=== PATIENT | male | born 1945 | race Hispanic/Latino ===

== ENCOUNTER 2017-04-03 09:37 | Inpatient (IN) | payer OTHER ==
[2017-04-03] VITALS (11 sets, daily range): BP systolic 134–156; BP diastolic 55–81
[~2017-04-03] VITALS: Ht 177.8 cm; Wt 110.6 kg
[2017-04-03 11:57] LABS: INR 0.96 (0.85-1.15); PARTIAL THROMBOPLASTIN TIME 29.5 SEC (26.3-35.5); PROTHROMBIN TIME 10.1 SEC (9.6-11.6)
[2017-04-03] MEDS ORDERED: TYL3B PO (12:29)
[2017-04-03] MEDS ORDERED: SULF1TAB3 PO (12:29)
[2017-04-03] MEDS ORDERED: CEPH500T PO (12:29)
[2017-04-03] MEDS ORDERED: ISOVUE-370 50ML VIAL IV ONE (13:51)
[2017-04-03] MEDS ORDERED: LIDOCAINE HCL 2% 20ML ONE (13:51)
[2017-04-03] MEDS ORDERED: IOPAMIDOL-370 100 ML VIAL IV ONE (13:51)
[2017-04-03] MEDS ORDERED: DEXTROSE 50%-WATER 50 ML DISP.SYRIN IV PRN (15:00)
[2017-04-03] MEDS ORDERED: ACETAMINOPHEN-CODEINE 300/30MG TAB PO PRN (15:00)
[2017-04-03] MEDS ORDERED: GLUCAGON 1MG KIT 1 MG ML IM PRN (15:00)
[2017-04-03] MEDS: CEPHALEXIN 500 MG CAPSULE PO SCH ×2 (17:29→20:11)
[2017-04-04 03:45] VITALS: BP 133/69
[2017-04-04 04:41] LABS: CREATININE 0.8 mg/dL (0.5-1.5); POTASSIUM 4.2 mmol/L (3.5-5.1)
[2017-04-04] MEDS ORDERED: FURO20TA6 PO (07:00)
[2017-04-04] MEDS ORDERED: LOSA50TA2 PO (07:00)
[2017-04-04] MEDS ORDERED: INSULIN HUMULIN R 100 UNIT/ML 3ML SQ SCH (07:30)
[2017-04-04 07:35] VITALS: BP 127/66
[2017-04-04] MEDS: CEPHALEXIN 500 MG CAPSULE PO SCH (08:17)
[2017-04-04] MEDS ORDERED: LOSARTAN 50 MG TABLET PO SCH (09:00)
[2017-04-04] MEDS ORDERED: FUROSEMIDE 20 MG TABLET PO SCH (09:00)
== END 2017-04-04 11:23 | disposition home or self-care (01) | DRG 287 ==
LOC: 2AH 10:19
PROVIDERS: ADMIT Family Medicine; ATTEND Family Medicine
PROC: B2111ZZ Fluoroscopy of Multiple Coronary Arteries using Low Osmolar Contrast (ICD-10-PCS; principal; 2017-04-03)
PROC: 4A023N7 Measurement of Cardiac Sampling and Pressure, Left Heart, Percutaneous Approach (ICD-10-PCS; 2017-04-03)
DX: I44.1 Atrioventricular block, second degree (principal); I42.0 Dilated cardiomyopathy; E11.9 Type 2 diabetes mellitus without complications; E66.9 Obesity, unspecified; I10 Essential (primary) hypertension; Z86.73 Personal history of transient ischemic attack (TIA), and cerebral infarction without residual deficits; Z68.35 Body mass index [BMI] 35.0-35.9, adult; Z83.3 Family history of diabetes mellitus; Z82.49 Family history of ischemic heart disease and other diseases of the circulatory system
CPT/HCPCS: 36415; 80048; 82948; 85610; 85730; 93005; 93458; C1760; C1894; J1644; J1815; J3490; Q9967

== ENCOUNTER 2017-04-09 11:34 | Inpatient (IN) | payer OTHER ==
[~2017-04-09] VITALS: Ht 177.8 cm; Wt 108.0 kg
[~2017-04-09 11:34] MED LIST: FURO20TA6 PO; LOSA50TA2 PO
[2017-04-09 12:41] LABS: BASOPHILS % (AUTO) 1.1 % (0.0-5.0); EOSINOPHILS % (AUTO) 2.4 % (0.0-8.0); HEMATOCRIT 41.4 % (42-54); LYMPHOCYTES % (AUTO) 18.2 % (21.0-51.0); MEAN CORPUSCULAR HEMOGLOBIN 32.8 pg (27.0-33.0); MEAN CORPUSCULAR HGB CONC 34.6 g/dL (32.0-36.0); MEAN CORPUSCULAR VOLUME 94.7 fL (79-99); MONOCYTES % (AUTO) 7.2 % (3.0-13.0); NEUTROPHILS % (AUTO) 71.1 % (40.0-77.0); PLATELET COUNT (AUTO) 215 K/uL (130-400); RED BLOOD CELL COUNT(AUTO) 4.37 MIL/uL (4.50-6.20); WHITE BLOOD COUNT (AUTO) 9.3 K/uL (4.8-10.8)
[2017-04-09 12:58] LABS: POTASSIUM 4.2 mmol/L (3.5-5.1)
[2017-04-09 13:12] LABS: ALBUMIN 3.3 g/dL (3.5-5.0); BILIRUBIN,TOTAL 0.3 mg/dL (0.2-1.0); CREATINE KINASE MB 0.8 ng/mL (0.5-3.6); TOTAL PROTEIN, SERUM 6.5 g/dL (6.0-8.3)
[2017-04-09] MEDS ORDERED: MORPHINE SULFATE 2 MG/ML 1ML SYG IV PRN (17:45)
[2017-04-09] MEDS ORDERED: FAMOTIDINE 20MG TAB 20 MG TAB ONE (20:17)
[2017-04-09] MEDS: FAMOTIDINE 20MG TAB 20 MG TAB PO SCH (21:00)
[2017-04-09 21:15] VITALS: BP 162/80
[2017-04-10] VITALS (8 sets, daily range): BP systolic 109–165; BP diastolic 50–78
[2017-04-10 06:34] LABS: EOSINOPHILS % (AUTO) 2.7 % (0.0-8.0); HEMATOCRIT 40.6 % (42-54); LYMPHOCYTES % (AUTO) 16.8 % (21.0-51.0); MEAN CORPUSCULAR HEMOGLOBIN 33.1 pg (27.0-33.0); MEAN CORPUSCULAR HGB CONC 34.7 g/dL (32.0-36.0); MEAN CORPUSCULAR VOLUME 95.3 fL (79-99); MONOCYTES % (AUTO) 7.8 % (3.0-13.0); NEUTROPHILS % (AUTO) 71.7 % (40.0-77.0); PLATELET COUNT (AUTO) 209 K/uL (130-400); RED BLOOD CELL COUNT(AUTO) 4.26 MIL/uL (4.50-6.20); RED CELL DISTRIBUTION WIDTH 12.8 % (11.0-15.5); WHITE BLOOD COUNT (AUTO) 8.8 K/uL (4.8-10.8)
[2017-04-10 06:56] LABS: CREATININE 0.9 mg/dL (0.5-1.5); MAGNESIUM 1.5 mg/dL (1.80-2.40); PHOSPHORUS 3.1 mg/dL (2.5-4.9); POTASSIUM 4.2 mmol/L (3.5-5.1); THYROID STIMULATING HORMONE 5.3 uIU/mL (0.36-3.74)
[2017-04-10 07:09] LABS: INR 0.98 (0.85-1.15); PROTHROMBIN TIME 10.3 SEC (9.6-11.6)
[2017-04-10] MEDS ORDERED: ATOR40TA71 PO (07:28)
[2017-04-10] MEDS ORDERED: LOSA25TA21 PO (07:28)
[2017-04-10] MEDS ORDERED: LEVO50TA11 PO (07:28)
[2017-04-10] MEDS ORDERED: FURO20TA4 PO (07:28)
[2017-04-10] MEDS ORDERED: CLOP75TA32 PO (07:28)
[2017-04-10] MEDS ORDERED: METF10004 PO (07:28)
[2017-04-10] MEDS ORDERED: SITA100T12 PO (07:28)
[2017-04-10] MEDS ORDERED: EZET10TA26 PO (07:28)
[2017-04-10] MEDS ORDERED: D3 PO (07:28)
[2017-04-10] MEDS ORDERED: ENOXAPARIN SODIUM 40 MG/0.4 ML SYRINGE SQ SCH (09:00)
[2017-04-10] MEDS: FAMOTIDINE 20MG TAB 20 MG TAB PO SCH ×2 (09:33→21:16)
[2017-04-10] MEDS ORDERED: VANCOMYCIN 1GM+NS 250ML 250 ML IV SCH (12:15)
[2017-04-10] MEDS: INSULIN HUMULIN R 100 UNIT/ML 3ML SQ SCH ×2 (16:56→21:17)
[2017-04-11] VITALS (12 sets, daily range): BP systolic 112–147; BP diastolic 53–89
[2017-04-11] MEDS: INSULIN HUMULIN R 100 UNIT/ML 3ML SQ SCH ×4 (06:47→22:24)
[2017-04-11] MEDS ORDERED: BUPIVACAINE/PF 0.25% 30ML VIAL IJ ONE (07:18)
[2017-04-11] MEDS ORDERED: LIDOCAINE HCL 1% MDV 50ML VIAL ONE (07:18)
[2017-04-11] MEDS ORDERED: MEPERIDINE-PF 50 MG/ML SYG ONE ×2 (07:43→08:36)
[2017-04-11] MEDS ORDERED: VANCOMYCIN 1GM+NS 250ML 500 ML IV ONE (07:43)
[2017-04-11] MEDS ORDERED: MIDAZOLAM HCL 1 MG/ML 2ML VIAL ONE ×4 (07:43→09:46)
[2017-04-11] MEDS ORDERED: ISOVUE-300 100 ML VIAL IV ONE (08:03)
[2017-04-11] MEDS: FAMOTIDINE 20MG TAB 20 MG TAB PO SCH ×2 (09:00→22:10)
[2017-04-11] MEDS ORDERED: ACETAMINOPHEN-CODEINE 300/30MG TAB PO PRN (11:15)
[2017-04-11] MEDS ORDERED: ACETAMINOPHEN 325 MG TAB PO PRN (11:15)
[2017-04-11] MEDS: ACETAMINOPHEN-CODEINE 300/30MG TAB PO PRN (14:30)
[2017-04-11] MEDS ORDERED: METOPROLOL TARTRATE 25 MG TAB PO SCH (21:00)
[2017-04-12 04:00] VITALS: BP 138/70
[2017-04-12] MEDS: INSULIN HUMULIN R 100 UNIT/ML 3ML SQ SCH ×2 (06:08→11:42)
[2017-04-12] MEDS ORDERED: CARV3.12 PO (06:57)
[2017-04-12] MEDS: FAMOTIDINE 20MG TAB 20 MG TAB PO SCH (07:42)
[2017-04-12] MEDS: ACETAMINOPHEN-CODEINE 300/30MG TAB PO PRN (07:42)
[2017-04-12 08:00] VITALS: BP 137/78
[2017-04-12] MEDS ORDERED: CARVEDILOL 3.125 MG TABLET PO SCH (09:00)
== END 2017-04-12 15:47 | disposition home or self-care (01) | DRG 226 ==
LOC: EDH 11:34 → EDHIP 17:44 → 3CH 20:56 → 2AH 04-10 01:13
PROVIDERS: ADMIT Family Medicine; ATTEND Family Medicine
PROC: 0JH608Z Insertion of Defibrillator Generator into Chest Subcutaneous Tissue and Fascia, Open Approach (ICD-10-PCS; principal; 2017-04-11)
PROC: 02HK3KZ Insertion of Defibrillator Lead into Right Ventricle, Percutaneous Approach (ICD-10-PCS; 2017-04-11)
PROC: 02H63KZ Insertion of Defibrillator Lead into Right Atrium, Percutaneous Approach (ICD-10-PCS; 2017-04-11)
DX: I44.1 Atrioventricular block, second degree (principal); I50.43 Acute on chronic combined systolic (congestive) and diastolic (congestive) heart failure; I42.0 Dilated cardiomyopathy; E11.9 Type 2 diabetes mellitus without complications; J44.9 Chronic obstructive pulmonary disease, unspecified; R00.1 Bradycardia, unspecified; E66.9 Obesity, unspecified; I10 Essential (primary) hypertension; I25.10 Atherosclerotic heart disease of native coronary artery without angina pectoris; I69.320 Aphasia following cerebral infarction; Z79.4 Long term (current) use of insulin; Z68.34 Body mass index [BMI] 34.0-34.9, adult; Z95.810 Presence of automatic (implantable) cardiac defibrillator; Z80.3 Family history of malignant neoplasm of breast; Z80.1 Family history of malignant neoplasm of trachea, bronchus and lung
CPT/HCPCS: 33225; 33249; 36415; 71045; 80048; 80053; 82550; 82553; 82948; 83735; 84100; 84443; 84484; 85025; 85610; 93005; 93306; 99152; 99153; C1769; C1882; C1900; J1650; J1815; J2175; J2250; J3370; J3490; Q9967